=== PATIENT | male | born 1960 | race American Indian/Alaskan Native ===

== ENCOUNTER 2018-05-31 10:13 | Emergency (ER) | payer BC ==
[2018-05-31 10:22] VITALS: BP 148/88
--- NOTE | 2018-05-31 12:41 | Emergency Department Report ---
HPI - General Chief Complaint: Upper Respiratory Infection Time Seen by Provider: 05/31/18 12:10 - HPI HPI: This is a 67-year-old male with no prior medical history who presents with generalized bodyaches pain with a runny and stuffy nose 2 days. Patient also complains of productive cough and nasal congestion times today. He denies chest pain, fevers, chills. ED Past Medical Hx - Past Medical History Hx GERD: Yes Additional medical history: high cholesterol. SLEEP APNEA - Surgical History Additional Surgical History: deviated septum, rhinoplasty, Gynecomastia. TONSILLECTOMY - Social History Smoking Status: Never Smoker Substance Use Type: None - Medications Home Medications: Home Medications Medication Instructions Recorded Confirmed Last Taken Type Cephalexin [Keflex] 500 mg PO BID #10 capsule 09/26/13 Unknown Rx Meclizine [Antivert] 25 mg PO TID PRN #20 tablet 11/08/13 Unknown Rx Acetaminophen/Codeine [Tylenol #3] 1 tab PO Q6H PRN #15 tab 02/09/15 Unknown Rx Benzonatate [Tessalon Perles] 100 mg PO Q8HR #20 capsule 05/31/18 Unknown Rx Ibuprofen [Motrin] 800 mg PO Q8HR #30 tablet 05/31/18 Unknown Rx guaiFENesin ER [Mucinex ER] 600 mg PO Q12H #20 tablet.er 05/31/18 Unknown Rx ED Review of Systems ROS: Stated complaint: AQUINO/RUNNY NOSE/DRY MOUTH Other details as noted in HPI Comment: All other systems reviewed and negative Physical Exam - Physical Exam Vital Signs: Vital Signs 05/31/18 10:20 Temperature 98.6 F Pulse Rate 102 H Respiratory 20 Rate Blood Pressure 148/88 O2 Sat by Pulse 96 Oximetry Physical Exam: GENERAL: Alert and oriented x3, no apparent distress, Normal Gait, atraumatic. HEAD: Head is normocephalic and a-traumatic. EYES: Extra ocular muscles are intact. Pupils are equal, round, and reactive to light and accommodation. EARS: symetrical, atraumatic, non tender, ear canal clear and moderate cerumen, tympanic membrance non inflamed. gross auditory nml bilaterally. NOSE: Nose symetrical, Nontender,Nares appeared normal. LUNGS: Symetrical with respiration, No wheezing, no rales or crackles, CTAB. HEART: S1, S2 present, regular rate and rhythm without murmur, no rubs, no gallops. Non tender to palpation SKIN: Warm and dry, No lesions, No ulceration or induration present. ED Course Vital Signs 05/31/18 10:20 Temperature 98.6 F Pulse Rate 102 H Respiratory 20 Rate Blood Pressure 148/88 O2 Sat by Pulse 96 Oximetry ED Medical Decision Making - Radiology Data Radiology results: report reviewed, image reviewed ROUTINE CHEST, TWO VIEWS: HISTORY: Cough, malaise. The trachea, heart, mediastinal contour, lung pal and bony thorax are unremarkable. IMPRESSION: Unremarkable chest x-ray. Transcribed By: TTR Dictated By: MOMO YIN JR, MD Electronically Authenticated By: MOMO YIN JR, MD Signed Date/Time: 05/31/18 1331 - Medical Decision Making 57-year-old male presents with upper respiratory infection. Chest x-ray shows no acute findings. Discussed this findings with the patient. Discussed with the patient and this is most viral in nature. Discussed [id number] symptomatic relief. Vital signs are normal patient is in no acute respiratory distress Critical care attestation.: If time is entered above; I have spent that time in minutes in the direct care of this critically ill patient, excluding procedure time. ED Disposition Clinical Impression: Upper respiratory infection Disposition: DC-01 TO HOME OR SELFCARE Is pt being admited?: No Does the pt Need Aspirin: No Condition: Stable Instructions: Upper Respiratory Infection (ED), Cold Symptoms (ED) Additional Instructions: Make sure to follow up with the primary care physician as discussed. Take all your medications as you've been prescribed. If you have any worsening symptoms or develop new symptoms please return to ED immediately. Prescriptions: Ibuprofen [Motrin] 800 mg PO Q8HR #30 tablet guaiFENesin ER [Mucinex ER] 600 mg PO Q12H #20 tablet.er Benzonatate [Tessalon Perles] 100 mg PO Q8HR #20 capsule Referrals: TEODORA GUZMÁN MD [Primary Care Provider] - 3-5 Days [facility] [Outside] - 3-5 Days [facility] [Outside] - 3-5 Days Forms: Work/School Release Form(ED) Time of Disposition: 13:41
--- NOTE | 2018-05-31 13:35 | XRay Report ---
ROUTINE CHEST, TWO VIEWS: HISTORY: Cough, malaise. The trachea, heart, mediastinal contour, lung pal and bony thorax are unremarkable. IMPRESSION: Unremarkable chest x-ray.
== END 2018-05-31 13:51 | disposition home or self-care (01) ==
LOC: ED 10:13
DX: J06.9 Acute upper respiratory infection, unspecified (principal); K21.9 Gastro-esophageal reflux disease without esophagitis; E78.00 Pure hypercholesterolemia, unspecified; G47.30 Sleep apnea, unspecified; Z88.5 Allergy status to narcotic agent; Z90.89 Acquired absence of other organs
CPT/HCPCS: 71046; 99283

== ENCOUNTER 2021-06-26 18:25 | Emergency (ER) | payer BC ==
[2021-06-26 19:55] VITALS: BP 137/87
[2021-06-27] MEDS ORDERED: traMADol 50 MG TAB PO ONE (01:06)
--- NOTE | 2021-06-27 01:39 | XRay Report ---
CERVICAL SPINE 3 VIEWS INDICATION / CLINICAL INFORMATION: neck pain s/p fall. COMPARISON: None available. FINDINGS: VERTEBRAE: No acute fracture. No significant malalignment. DISC SPACES / FACET JOINTS:No significant abnormality. PARASPINAL SOFT TISSUES:No significant abnormality. ADDITIONAL FINDINGS: None. IMPRESSION: No evidence of acute cervical spine fracture. No significant degenerative change. Signer Name: Janusz Quigley II, MD Signed: 06/27/2021 1:34 AM Workstation Name: [id number]
--- NOTE | 2021-06-27 02:14 | Emergency Department Report ---
ED General Adult HPI - General Chief complaint: Fall Stated complaint: FELL/HEAD/NECK PAIN Time Seen by Provider: 06/27/21 00:45 Source: patient Mode of arrival: Ambulatory Limitations: No Limitations - History of Present Illness Severity scale (0 -10): 0 - Related Data Previous Rx's Medication Instructions Recorded Last Taken Type Cephalexin [Keflex] 500 mg PO BID #10 capsule 09/26/13 Unknown Rx Meclizine [Antivert] 25 mg PO TID PRN #20 tablet 11/08/13 Unknown Rx Acetaminophen/Codeine [Tylenol #3] 1 tab PO Q6H PRN #15 tab 02/09/15 Unknown Rx Benzonatate [Tessalon Perles] 100 mg PO Q8HR #20 capsule 05/31/18 Unknown Rx Ibuprofen [Motrin] 800 mg PO Q8HR #30 tablet 05/31/18 Unknown Rx guaiFENesin ER [Mucinex ER] 600 mg PO Q12H #20 tablet.er 05/31/18 Unknown Rx Cyclobenzaprine [Flexeril] 10 mg PO BID PRN #20 tab 06/27/21 Unknown Rx Menthol/Camphor [[place] 1 applicatio TP Q6H PRN #1 tube 06/27/21 Unknown Rx Ointment] Naproxen 500 mg PO BID PRN #30 tab 06/27/21 Unknown Rx Allergies Allergy/AdvReac Type Severity Reaction Status Date / Time acetaminophen [From Percocet] Allergy Vomiting Verified 05/31/18 10:16 oxycodone [From Percocet] Allergy Vomiting Verified 05/31/18 10:16 ED Review of Systems ROS: Stated complaint: FELL/HEAD/NECK PAIN Other details as noted in HPI ED Past Medical Hx - Past Medical History Hx GERD: Yes Additional medical history: high cholesterol. SLEEP APNEA - Surgical History Additional Surgical History: deviated septum, rhinoplasty, Gynecomastia. TONSILLECTOMY - Social History Smoking Status: Never Smoker Substance Use Type: None - Medications Home Medications: Home Medications Medication Instructions Recorded Confirmed Last Taken Type Cephalexin [Keflex] 500 mg PO BID #10 capsule 09/26/13 Unknown Rx Meclizine [Antivert] 25 mg PO TID PRN #20 tablet 11/08/13 Unknown Rx Acetaminophen/Codeine [Tylenol #3] 1 tab PO Q6H PRN #15 tab 02/09/15 Unknown Rx Benzonatate [Tessalon Perles] 100 mg PO Q8HR #20 capsule 05/31/18 Unknown Rx Ibuprofen [Motrin] 800 mg PO Q8HR #30 tablet 05/31/18 Unknown Rx guaiFENesin ER [Mucinex ER] 600 mg PO Q12H #20 tablet.er 05/31/18 Unknown Rx Cyclobenzaprine [Flexeril] 10 mg PO BID PRN #20 tab 06/27/21 Unknown Rx Menthol/Camphor [[place] 1 applicatio TP Q6H PRN #1 tube 06/27/21 Unknown Rx Ointment] Naproxen 500 mg PO BID PRN #30 tab 06/27/21 Unknown Rx ED Physical Exam - General Limitations: No Limitations ED Course Vital Signs 06/26/21 19:09 Temperature 98.5 F Pulse Rate 83 Respiratory 18 Rate Blood Pressure 137/87 O2 Sat by Pulse 98 Oximetry ED Medical Decision Making - Radiology Data Radiology results: report reviewed, image reviewed CERVICAL SPINE 3 VIEWS INDICATION / CLINICAL INFORMATION: neck pain s/p fall. COMPARISON: None available. FINDINGS: VERTEBRAE: No acute fracture. No significant malalignment. DISC SPACES / FACET JOINTS:No significant abnormality. PARASPINAL SOFT TISSUES:No significant abnormality. ADDITIONAL FINDINGS: None. IMPRESSION: No evidence of acute cervical spine fracture. No significant degenerative change. Signer Name: Joshua Quigley II, MD Signed: 06/27/2021 1:34 AM Workstation Name: [id number] Transcribed By: LYNDSEY Dictated By: JOSHUA QUIGLEY II, MD Electronically Authenticated By: JOSHUA QUIGLEY II, MD Signed Date/Time: 06/27/21133 DD/ 3 TD/TT: - Medical Decision Making C-spine x-ray normal no subluxation no dislocation no fracture no soft tissue abnormality. Plan DC to home, NSAIDs as needed pain moist heat therapy. Follow-up with your primary care doctor in 2 to 3 days. Return to emergency if symptoms worsen. Patient verbalized agreement and understanding with discharge plan patient DC'd home in stable condition at this time. Critical care attestation.: If time is entered above; I have spent that time in minutes in the direct care of this critically ill patient, excluding procedure time. ED Disposition Clinical Impression: Fall Qualifiers: Encounter type: initial encounter Qualified Code(s): W19.XXXA - Unspecified fal l, initial encounter Strain of neck muscle Qualifiers: Encounter type: initial encounter Qualified Code(s): S16.1XXA - Strain of muscle, fascia and tendon at neck level, initial encounter Disposition: HOME / SELF CARE / HOMELESS Is pt being admited?: No Does the pt Need Aspirin: No Condition: Stable Instructions: Cervical Strain and Sprain Rehab-Sports[facility] Additional Instructions: Take medications as prescribed, use moist heat therapy as directed. Neck exercises as directed. Follow-up with your doctor in 2 to 3 days. Return to emergency department for symptoms worsen. Prescriptions: Cyclobenzaprine [Flexeril] 10 mg PO BID PRN #20 tab PRN Reason: Muscle Spasm Naproxen 500 mg PO BID PRN #30 tab PRN Reason: pain Menthol/Camphor [[place] Ointment] 1 applicatio TP Q6H PRN #1 tube PRN Reason: pain Referrals: DENVER HYMAN MD [Primary Care Provider] - 3-5 Days Forms: Work/School Release Form(ED) Time of Disposition: 02:18
== END 2021-06-27 02:54 | disposition home or self-care (01) ==
LOC: ED 18:25
DX: S16.1XXA Strain of muscle, fascia and tendon at neck level, initial encounter (principal); W19.XXXA Unspecified fall, initial encounter; Y93.89 Activity, other specified; Y92.89 Other specified places as the place of occurrence of the external cause; Y99.8 Other external cause status; Z88.6 Allergy status to analgesic agent
CPT/HCPCS: 72040; 99283